=== PATIENT | female | born 1995 | race Caucasian/White ===

== ENCOUNTER 2017-01-17 19:31 | Observation (INO) | payer OTHER ==
[2017-01-17] MEDS ORDERED: ONDANSETRON 4 MG/2 ML VIAL ONE (20:06)
--- NOTE | 2017-01-17 20:22 | EDPHY ---
H & P Time Seen by Provider: 01/17/17 20:01 HPI/ROS: Chief complaint. Shortness of breath HPI. 21-year-old female moving from [place]. She and her drove from [place] continuously and then drove immediately in spent the night in [place]. last night. This afternoon she developed a headache that gradually worsened. She then developed nausea and vomiting and shortness of breath especially with exertion. She was not sick on the car ride over from [place]. She has had no fever cough. Her headache is better as they came down from altitude and black caught to [place]. No unusual leg pain or swelling. ROS Constitutional. no fever/chills, no weakness Eyes. no problems with vision ENT. no sore throat, no nasal drainage Cardiovascular. no chest pain Respiratory. Shortness of breath without cough Abdominal. No abdominal pain but nausea vomiting . no problems urinating MS. no calf pain/swelling, no neck/back pain, no joint pain Skin. no rash Lymph. no swollen glands Neuro. Headache Past Medical/Surgical History: Chronic back pain Social History: , nonsmoker no alcohol Smoking Status: Never smoked Physical Exam: General Appearance: Alert well-developed female moderate distress vital signs show the patient be afebrile. Heart rate 100. O2 saturation 89% on room air Eyes: Pupils equal and round no pallor or injection. ENT, Mouth: Mucous membranes are moist. Respiratory: There are no retractions, lungs are clear to auscultation. Cardiovascular: Regular rate and rhythm. Gastrointestinal: Abdomen is soft and nontender, no masses, bowel sounds normal. Neurological: Awake and alert, sensory and motor exams grossly normal. Skin: Warm and dry, no rashes. Musculoskeletal: Neck is supple nontender. Extremities symmetrical, full range of motion. Psychiatric: Patient is oriented X 3, there is no agitation. Constitutional: Initial Vital Signs Temperature (C) 36.9 C 01/17/17 19:40 Heart Rate 100 01/17/17 19:40 Respiratory Rate 18 01/17/17 19:40 Blood Pressure 131/69 H 01/17/17 19:40 O2 Sat (%) 89 L 01/17/17 19:40 O2 Delivery Mode Room Air O2 (L/minute) 2 Allergies/Adverse Reactions: tramadol Allergy (Verified 01/17/17 19:40) Home Medications: Medication Instructions Recorded NK [No Known Home Meds] 01/17/17 Medical Decision Making - Diagnostics Imaging: Chest x-ray shows some evidence of airway disease and maybe slight volume overload. No pneumonia Procedures: IV normal saline with target of 2 L. Acetazolamide by mouth. Oxygen by nasal cannula ED Course/Re-evaluation: Patient remained stable. On re-evaluation her O2 saturations are in the low 90s on room air. She complains of headache. She is given Diamox orally. She is given Toradol for her headache. I have consulted and discussed the case with Dr. Madrigal, hospitalist who agrees to the admission Patient, her , and I discussed imaging, lab results. We discussed treatment plan including recommendation for admission. They expressed understanding and agreement Differential Diagnosis: This is likely altitude illness as the patient went [place] sea [place] approximately 9500 feet in approximately 12 hours. Symptoms are consistent with altitude illness. No obvious evidence of high-altitude pulmonary edema though the patient was somewhat hypoxic. I considered pneumonia and pulmonary embolus as well - Data Points Laboratory Results: Laboratory Results 01/17/17 20:15 01/17/17 20:15 01/17/17 01/17/17 01/17/17 20:35 20:15 20:15 WBC RBC Hgb Hct MCV MCH MCHC RDW Plt Count MPV Neut % (Auto) Lymph % (Auto) [place] % (Auto) Eos % (Auto) Baso % (Auto) Nucleat RBC Rel Count Absolute Neuts (auto) Absolute Lymphs (auto) Absolute Monos (auto) Absolute Eos (auto) Absolute Basos (auto) Absolute Nucleated RBC Immature Gran % Immature Gran # D-Dimer 0.35 ug/mLFEU ug/mLFEU (0.00-0.50) Sodium Potassium Chloride Carbon Dioxide Anion Gap BUN Creatinine Estimated GFR Glucose Calcium Beta HCG, Qual NEGATIVE Influenza Typ A,B (DFA) NEGATIVE FOR FLU (NEGATIVE) 01/17/17 01/17/17 20:15 20:15 WBC 5.88 10^3/uL 10^3/uL (3.80-9.50) RBC 4.23 10^6/uL 10^6/uL (4.18-5.33) Hgb 12.8 g/dL g/dL (12.6-16.3) Hct 36.7 % L % (38.0-47.0) MCV 86.8 fL fL (81.5-99.8) MCH 30.3 pg pg (27.9-34.1) MCHC 34.9 g/dL g/dL (32.4-36.7) RDW 11.9 % % (11.5-15.2) Plt Count 259 10^3/uL 10^3/uL (150-400) MPV 9.0 fL fL (8.7-11.7) Neut % (Auto) 58.4 % % (39.3-74.2) Lymph % (Auto) 28.1 % % (15.0-45.0) [place] % (Auto) 12.9 % % (4.5-13.0) Eos % (Auto) 0.0 % L % (0.6-7.6) Baso % (Auto) 0.3 % % (0.3-1.7) Nucleat RBC Rel Count 0.0 % % (0.0-0.2) Absolute Neuts (auto) 3.43 10^3/uL 10^3/uL (1.70-6.50) Absolute Lymphs (auto) 1.65 10^3/uL 10^3/uL (1.00-3.00) Absolute Monos (auto) 0.76 10^3/uL 10^3/uL (0.30-0.80) Absolute Eos (auto) 0.00 10^3/uL L 10^3/uL (0.03-0.40) Absolute Basos (auto) 0.02 10^3/uL 10^3/uL (0.02-0.10) Absolute Nucleated RBC 0.00 10^3/uL 10^3/uL (0-0.01) Immature Gran % 0.3 % % (0.0-1.1) Immature Gran # 0.02 10^3/uL 10^3/uL (0.00-0.10) D-Dimer Sodium 134 mEq/L mEq/L (134-144) Potassium 3.6 mEq/L mEq/L (3.5-5.2) Chloride 101 mEq/L mEq/L (97-110) Carbon Dioxide 23 mEq/l mEq/l (22-31) Anion Gap 10 mEq/L mEq/L (8-16) BUN 10 mg/dL mg/dL (7-23) Creatinine 0.7 mg/dL mg/dL (0.6-1.0) Estimated GFR > 60 Glucose 100 mg/dL mg/dL (70-100) Calcium 9.3 mg/dL mg/dL (8.5-10.4) Beta HCG, Qual Influenza Typ A,B (DFA) Medications Given: Discontinued Medications Sodium Chloride (Ns) 1,000 mls @ 0 mls/hr IV ONCE ONE PRN Reason: Wide Open Stop: 01/17/17 20:32 Last Admin: 01/17/17 20:10 Dose: 1,000 mls Ondansetron HCl (Zofran) 4 mg IVP EDNOW ONE Stop: 01/17/17 20:25 Last Admin: 01/17/17 20:25 Dose: 4 mg Departure - Departure Disposition: Home, Routine, Self-Care Clinical Impression: Hypoxia Altitude illness Qualifiers: Encounter type: initial encounter Qualified Code(s): T70.29XA - Other effects of high altitude, initial encounter Condition: Fair
[2017-01-17] MEDS ORDERED: ONDANSETRON 4 MG/2 ML VIAL IVP ONE (20:24)
[2017-01-17] MEDS ORDERED: NS 1,000 ML IV ONE (20:31)
[2017-01-17 20:41] LABS: % IMMATURE GRANULYOCYTES 0.3 % (0.0-1.1); ABSOLUTE IMMATURE GRANULOCYTES 0.02 10^3/uL (0.00-0.10); ADD DIFF? NO; ADD MORPH? NO; ADD SCAN? NO; ATYPICAL LYMPHOCYTE FLAG 50 (0-99); FRAGMENT RBC FLAG 10 (0-99); HEMATOCRIT 36.7 % (38.0-47.0); HEMOGLOBIN 12.8 g/dL (12.6-16.3); LEFT SHIFT FLG 0 (0-99); LIPEMIA HEMOLYSIS FLAG 90 (0-99); MEAN CELL HEMOGLOBIN 30.3 pg (27.9-34.1); MEAN CELL HEMOGLOBIN CONCENTR. 34.9 g/dL (32.4-36.7); MEAN CELL VOLUME 86.8 fL (81.5-99.8); PLATELET CLUMPS FLAG 0 (0-99); PLATELET COUNT 259 10^3/uL (150-400); RED BLOOD CELL COUNT 4.23 10^6/uL (4.18-5.33); RED CELL DISTRIBUTION WIDTH 11.9 % (11.5-15.2)
[2017-01-17 20:44] LABS: ANION GAP 10 mEq/L (8-16); CALCIUM 9.3 mg/dL (8.5-10.4); CARBON DIOXIDE 23 mEq/l (22-31); CHLORIDE 101 mEq/L (97-110); CREATININE 0.7 mg/dL (0.6-1.0); GLOMERULAR FILTRATION RATE > 60; GLUCOSE 100 mg/dL (70-100); POTASSIUM 3.6 mEq/L (3.5-5.2); SODIUM 134 mEq/L (134-144)
[2017-01-17] MEDS ORDERED: acetaZOLAMIDE 250 MG TAB PO SCH ×2 (21:00→23:04)
[2017-01-17 22:10] VITALS: RESP 16
[2017-01-17] MEDS ORDERED: KETOROLAC 30 MG/1 ML SDV IVP ONE (22:20)
--- NOTE | 2017-01-17 22:36 | PDEACUHP ---
History and Physical - Chief Complaint headache - History of Present Illness 21 y/o female visiting from [place] presents to the ED with headache and shortness of breath that started yesterday after arriving in [place]. The patient and her just drove into [place] last night where they spent the night in [place]. She first developed a headache involving her entire head (L>R). The pain is described as sharp and pulsating. Her Headache is exacerbated by light and loud noises. She also notes shortness of breath, nausea , and an episode of nonbloody vomiting. Her SpO2 upon arrival to the ED was noted to be 89%. She has had migraine headaches in the past. She denies any sick contacts. No fever or chills. Denies leg pain or swelling. Her brought her to the ED this evening since her symptoms are not improving. In the ED she was given 2L NS and started on acetazolamide. History Information - Allergies/Home Medication List Allergies/Adverse Reactions: tramadol Allergy (Verified 01/17/17 19:40) Home Medications: NK [No Known Home Meds] 01/17/17 [Last Taken Unknown] I have personally reviewed and updated: family history, medical history, social history, surgical history - Past Medical History migraines Additional medical history: back pain and scoliosis - Surgical History Reports: no pertinent surgical hx - Social History Smoking Status: Never smoked Alcohol Use: None Drug Use: None Review of Systems ROS: 10pt was reviewed & negative except for what was stated in HPI & below Constitutional: Reports: malaise EENMT: Reports: no symptoms Cardiac: Reports: no symptoms Respiratory: Reports: shortness of breath Gastrointestinal: Reports: vomitting, nausea. Denies: abdominal pain, diarrhea Genitourinary: Reports: no symptoms Muscolosketal: Reports: no symptoms Skin: Reports: no symptoms Neurological: Reports: no symptoms Hematologic/Lymphatic: Reports: no symptoms Immunologic/Allergy: Reports: no symptoms Physical Exam Temp Pulse Resp BP Pulse Ox 36.8 C 58 L 16 111/58 L 96 01/17/17 22:00 01/17/17 22:00 01/17/17 22:00 01/17/17 22:00 01/17/17 22:00 Constitutional: no apparent distress, appears nourished, not in pain Eyes: PERRL, anicteric sclera, EOMI Ears, Nose, Mouth, Throat: moist mucous membranes, hearing normal, ears appear normal, no oral mucosal ulcers Cardiovascular: regular rate and rhythym, no murmur, rub, or gallop, No edema Respiratory: no respiratory distress, no rales or rhonchi, clear to auscultation Gastrointestinal: normoactive bowel sounds, soft, non-tender abdomen, no palpable masses, No guarding, No rebound Genitourinary: no bladder fullness, no bladder tenderness Skin: warm, normal color, no rashes or abrasions, no fluctuance, no induration, No mottled Musculoskeletal: full muscle strength, no muscle tenderness, normal joint ROM, no joint effusions Neurologic: AAOx3, CN II-XII Intact, No facial droop Psychiatric: interacting appropriately, not anxious, not encephalopathic, thought process linear, flat affect Lab Data & Imaging Review 01/17/17 20:15 01/17/17 20:15 WBC 5.88 10^3/uL (3.80-9.50) 01/17/17 20:15 RBC 4.23 10^6/uL (4.18-5.33) 01/17/17 20:15 Hgb 12.8 g/dL (12.6-16.3) 01/17/17 20:15 Hct 36.7 % (38.0-47.0) L 01/17/17 20:15 MCV 86.8 fL (81.5-99.8) 01/17/17 20:15 MCH 30.3 pg (27.9-34.1) 01/17/17 20:15 MCHC 34.9 g/dL (32.4-36.7) 01/17/17 20:15 RDW 11.9 % (11.5-15.2) 01/17/17 20:15 Plt Count 259 10^3/uL (150-400) 01/17/17 20:15 MPV 9.0 fL (8.7-11.7) 01/17/17 20:15 Neut % (Auto) 58.4 % (39.3-74.2) 01/17/17 20:15 Lymph % (Auto) 28.1 % (15.0-45.0) 01/17/17 20:15 [place] % (Auto) 12.9 % (4.5-13.0) 01/17/17 20:15 Eos % (Auto) 0.0 % (0.6-7.6) L 01/17/17 20:15 Baso % (Auto) 0.3 % (0.3-1.7) 01/17/17 20:15 Nucleat RBC Rel Count 0.0 % (0.0-0.2) 01/17/17 20:15 Absolute Neuts (auto) 3.43 10^3/uL (1.70-6.50) 01/17/17 20:15 Absolute Lymphs (auto) 1.65 10^3/uL (1.00-3.00) 01/17/17 20:15 Absolute Monos (auto) 0.76 10^3/uL (0.30-0.80) 01/17/17 20:15 Absolute Eos (auto) 0.00 10^3/uL (0.03-0.40) L 01/17/17 20:15 Absolute Basos (auto) 0.02 10^3/uL (0.02-0.10) 01/17/17 20:15 Absolute Nucleated RBC 0.00 10^3/uL (0-0.01) 01/17/17 20:15 Immature Gran % 0.3 % (0.0-1.1) 01/17/17 20:15 Immature Gran # 0.02 10^3/uL (0.00-0.10) 01/17/17 20:15 D-Dimer 0.35 ug/mLFEU (0.00-0.50) 01/17/17 20:15 Sodium 134 mEq/L (134-144) 01/17/17 20:15 Potassium 3.6 mEq/L (3.5-5.2) 01/17/17 20:15 Chloride 101 mEq/L (97-110) 01/17/17 20:15 Carbon Dioxide 23 mEq/l (22-31) 01/17/17 20:15 Anion Gap 10 mEq/L (8-16) 01/17/17 20:15 BUN 10 mg/dL (7-23) 01/17/17 20:15 Creatinine 0.7 mg/dL (0.6-1.0) 01/17/17 20:15 Estimated GFR > 60 01/17/17 20:15 Glucose 100 mg/dL (70-100) 01/17/17 20:15 Calcium 9.3 mg/dL (8.5-10.4) 01/17/17 20:15 Beta HCG, Qual NEGATIVE 01/17/17 20:15 Influenza Typ A,B (DFA) NEGATIVE FOR FLU (NEGATIVE) 01/17/17 20:35 Visualized and Interpreted Chest x-ray results: Yes Chest X-Ray results: no infiltrate, normal, normal heart size, other (Impression : Findings most consistent with airways disease are noted. ) Assessment & Plan Assessment: 21 y/o female who arrived in [place] yesterday and spent the night in [place] presents with #headache, sob, nausea/vomiting, and malaise most consistent with acute mountain sickness other possibilities include migraine, acute viral illness #acute respiratory failure secondary to above without evidence for PE, HAPE, or Pneumonia plan -place in observation -supportive care with NSAIDS/Antiemetics -will continue acetazolamide since the patient plans to return to [place] -trial 1 dose of dexamethasone -supplemental O2 dispo: anticipate discharge in the morning once symptoms improved
[2017-01-17] MEDS ORDERED: PROMETHAZINE HCL 25 MG/ML INJ IVP PRN (23:02)
[2017-01-17] MEDS ORDERED: IBUPROFEN 600 MG TAB PO PRN (23:02)
[2017-01-17] MEDS ORDERED: ACETAMINOPHEN 325 MG TAB PO PRN (23:02)
[2017-01-17] MEDS ORDERED: ONDANSETRON DISINTEGRATING 4 MG TAB PO PRN (23:02)
[2017-01-17] MEDS ORDERED: KETOROLAC 30 MG/1 ML SDV IVP PRN (23:04)
[2017-01-17] MEDS ORDERED: D5W 1/2 NS W/ 20 KCl/L 1,000 ML IV SCH (23:15)
[2017-01-18] MEDS ORDERED: DEXAMETHASONE 4 MG TAB PO ONE (01:00)
[2017-01-18 08:48] VITALS: BP 111/52; PULSE 59; TEMP 99.1; O2SAT 96
--- NOTE | 2017-01-18 09:47 | HOSPPROG ---
Hospitalist Progress Note Assessment/Plan: 21 yo F w possible acute altitude scikness w THOMAS THOMAS: partially resolved no meningeal signs altitude sickness: has not resolved commpletely w descent but has improved 3 days diamox dispo: home today see dc summary Subjective: feels better but still w THOMAS Objective: Vital Signs Temp Pulse Resp BP Pulse Ox 37.3 C 59 L 16 111/52 L 96 01/18/17 08:00 01/18/17 08:00 01/18/17 08:00 01/18/17 08:00 01/18/17 08:00 01/17/17 01/18/17 01/19/17 05:59 05:59 05:59 Intake Total 1000 Balance 1000 - Physical Exam Constitutional: no apparent distress, appears nourished Eyes: PERRL, anicteric sclera Ears, Nose, Mouth, Throat: moist mucous membranes, hearing normal Cardiovascular: regular rate and rhythym, no murmur, rub, or gallop Respiratory: no respiratory distress, no rales or rhonchi Gastrointestinal: normoactive bowel sounds, soft, non-tender abdomen Genitourinary: No garcia in urethra Skin: warm, normal color Neurologic: other (UE strength 5/5 b/l) ICD10 Worksheet Patient Problems: Problems Problem Status Onset Altitude illness Acute Hypoxia Acute
--- NOTE | 2017-01-18 10:26 | GDS ---
[f rep st] DISCHARGE SUMMARY DISCHARGE DIAGNOSES: 1. Possible acute mountain sickness. 2. Headache. Please see admission history and physical by Dr. Sergio Madrigal. The patient presented with fever now. She lives [place] in [place], [place]. She has recently moved to [place] and was taking maddie ck cohosh. She had headache. It improved with descent but has not fully resolved. She has had no meningeal signs. She also complains of neck pain. She has a normal neurologic exam. She is discha rged home today with 3 days of Diamox. /[id number]/MODL
== END 2017-01-18 13:20 | disposition home or self-care (01) ==
LOC: F1N 23:01
PROVIDERS: ADMIT Family Medicine; ATTEND Internal Medicine
DX: R06.02 Shortness of breath (principal); R51 Headache; R11.2 Nausea with vomiting, unspecified; M54.9 Dorsalgia, unspecified
CPT/HCPCS: 71020; G0378; 96374; J1885; J2405